=== PATIENT | female | born 1955 | race Caucasian/White ===

== ENCOUNTER 2023-03-31 06:20 | Inpatient (IN) | payer OTHER, MEDICARE, SELFPAY ==
--- NOTE | 2023-02-25 11:28 | CM ---
Patient is scheduled for an elective L THR on 03/31/23. Spoke with patient prior to surgery via telephone. Introduced role of Orthopedic Navigator. Patient reports that she lives with her and daughter in a two story home. There is one step to
enter, two steps into the kitchen and a flight of steps to the second floor. She has a stair glide to the second floor which patient does use. There is a powder room on the entry level accounting clerk. She currently functions independently and uses a cane. She also
has two rolling walkers, two commodes, shower seat, grabbers, long handled shoe horn and sock aide. PCP is Evelia Monte NP.
Discussed orthopedic program and post surgical plans. Reviewed anticipated length of stay and that goal is for her to return home at discharge. Also reviewed outpatient PT. Patient is in agreement with tentative plan and will go directly to
outpatient PT at [facility]. She will have support from her when she goes home.
Patient has completed online education.
Plan: Orthopedic Navigator will remain available to assist with the care of patient and will reassess discharge needs after surgery.
[2023-03-09 07:12] VITALS: BMI 41.3
[2023-03-09 09:04] LABS: Hematocrit 39.4 % (37.0-47.0); Hemoglobin 13.5 g/dL (12.0-16.0); Mean Corp Hgb Conc. 34.3 g/dL (33.0-37.0); Mean Corpuscular Hgb 31.8 pg (27.0-31.0); Mean Corpuscular Volume 92.7 fL (81.0-99.0); Mean Platelet Volume 10.8 fL (7.4-10.4); Platelet Count 249 10^3/uL (130-400); Red Blood Cell Count 4.25 10^6/uL (4.20-5.40); Red Cell Dist. Width 13.2 % (11.5-14.5); White Blood Cell Count 5.9 10^3/uL (4.8-10.8)
[2023-03-09 09:19] LABS: ALT (SGPT) 17 U/L (0-35); AST (SGOT) 27 U/L (14-36); Albumin 4.2 g/dl (3.5-5.0); Alkaline Phosphatase 61 U/L (38-126); Blood Urea Nitrogen 12 mg/dl (7-17); Calcium 9.9 mg/dl (8.4-10.2); Carbon Dioxide 29 mmol/L (22-30); Chloride 102 mmol/L (98-107); Estimated Creatinine Clearance 103 ml/min; Glucose 104 mg/dl (70-99); Potassium 4.3 mmol/L (3.5-5.1); Sodium 137 mmol/L (135-145); Total Bilirubin 0.6 mg/dl (0.2-1.3); Total Protein 6.6 g/dl (6.3-8.2); eGFR > 60.00
[2023-03-09 10:20] LABS: Glycohemoglobin (HgbA1c) 6.1 % (4.0-5.6)
[2023-03-09 15:18] VITALS: BMI 41.3
[2023-03-31] VITALS (22 sets, daily range): BP systolic 74–129; BP diastolic 41–97; PULSE 75–77; O2SAT 96–98; BMI 41.3
[2023-03-31] MEDS: NORMOSOL-R 1000 IV ×2 (08:50→13:17)
[2023-03-31 08:57] LABS: Glucose - Point of Care 128 mg/dl (70-99)
[2023-03-31] MEDS: CELEBREX 200 MG PO (09:06)
[2023-03-31] MEDS: TYLENOL 650 MG PO ×4 (09:06→23:34)
[2023-03-31 11:01] LABS: Glucose - Point of Care 101 mg/dl (70-99)
[2023-03-31 12:47] LABS: Glucose - Point of Care 93 mg/dl (70-99)
[2023-03-31] MEDS: NEURONTIN 200 MG PO ×3 (13:16→21:19)
[2023-03-31] MEDS: ROXICODONE 5 MG PO ×2 (13:17→21:05)
--- NOTE | 2023-03-31 13:29 | W.PN.ORTHO ---
Today's Communication / Plan
-
D/c when clinically stable.
Assessment
.
Distal Motor Intact: Yes
Dressing:
Clean, dry and intact.
Assessment:
L hip OA s/p Mary Jane hall/ Dr Watts 03/31/23
- s/p R TKA, 09/2022, at an outside facility
DVT prophylaxis - ASA, b/l venous foot pumps
HTN - + parameters - monitor BP
Abnormal nuclear stress test - monitor on tele
ROSE, compliant with CPAP (variable setting) - monitor O2
- Resume CPAP HS
- IS
Zea-hlulfky-grsfexavr diabetes, A1c 6.1 - monitor BS
- Resume home meds
- +SSI
- Continue diabetic carb controlled diet
- Cefadroxil to be Rx upon d/c for infection prevention
Hyperlipidemia
Mild pulmonic insufficiency
Venous insufficiency with venous stasis
Colon polyps
Remote migraines
Left breast cancer, 2020, status post left lumpectomy with lymph node excision and radiation; on current Letrozole
Squamous cell carcinoma, status post excision
Eczema
E. Coli UTI, 03/17/2023, treated with Ampicillin
Morbid obesity, BMI 41.3
Pt reported loose stools yesterday (medication induced) - given this, will hold Colace and Senna for now at the request of the patient.
Plan
.
Surgery / Date: Mary Jane hall/ Dr Watts 03/31/23
DVT Prophylaxis: Aspirin
Activity:
Out of bed.
PT/OT
Discharge Plan: Home w/ Outpatient PT
Subjective
.
.:
Patient examined resting in the PACU.
L hip pain 'burning' reported - Gabapentin, Tylenol, and Oxycodone provided.
Denies any new significant complaints.
Vital Signs and Labs
.
Vital Signs and Labs:
Lab Results
01/30/24 07:06
03/09/23 07:06
Temp Pulse Resp BP Pulse Ox
98.1 F 70 16 120/48 98
03/31/23 08:52 03/31/23 08:52 03/31/23 08:52 03/31/23 08:52 03/31/23 08:52
Physical Exam
-
HEENT: No pallor, cyanosis, or jaundice. Throat clear.
NECK: Supple. No JVD.
RESPIRATORY: Lungs clear to auscultation.
CVS: S1, S2 normal. RRR.�
ABDOMEN: Soft, non-tender. No distension. Morbidly obese.
EXTREMITIES: Strength equal, no calf pain with palpation/dorsiflexion. Calves soft.
INSPECTOR OPTICAL INSTRUMENT: AOx3. No focal deficits. dinkey engine mechanic grossly intact
[2023-03-31 13:59] LABS: Glucose - Point of Care 117 mg/dl (70-99)
[2023-03-31] MEDS: NOVOLOG FLEXPEN-MODERATE RESISTANCE SC (14:07)
[2023-03-31] MEDS: GLUCOPHAGE PO (14:59)
[2023-03-31] MEDS: FEMARA PO (16:35)
[2023-03-31] MEDS: VITAMIN D3 (cholecalciferol) 50 MCG PO (16:35)
[2023-03-31] MEDS: TYLENOL PO (16:37)
[2023-03-31] MEDS: GLUCOPHAGE 1000 MG PO (16:40)
--- NOTE | 2023-03-31 17:03 | PTCARENOTE ---
pt admitted to 2S room 2111 from the PACU at 1400. pt oriented to room, environment and plan of care with verbalized understanding. admission database and assessment completed as documented. Telemetry placed -SR w/1st degree AVB block HR 80's. pt
verbalized left hip discomfort @ 3. will monitor.
[2023-03-31 17:35] LABS: Glucose - Point of Care 244 mg/dl (70-99)
[2023-03-31] MEDS: ASPIRIN 325 MG PO (18:23)
[2023-03-31] MEDS: NOVOLOG FLEXPEN-MODERATE RESISTANCE 3 UNITS SC (18:24)
[2023-03-31] MEDS: BACTROBAN 2% OINTMENT 1 APPLIC NASAL (20:46)
[2023-03-31] MEDS: TORADOL 10 MG IV (20:49)
[2023-03-31] MEDS: ANCEF 5 IV (20:50)
[2023-03-31 21:05] LABS: Glucose - Point of Care 182 mg/dl (70-99)
[2023-03-31] MEDS: ZESTRIL 5 MG PO (21:18)
[2023-03-31] MEDS: FEOSOL 325 MG PO (21:19)
[2023-03-31] MEDS: PEPCID 20 MG PO (21:19)
[2023-03-31] MEDS: LIPITOR 40 MG PO (21:20)
[2023-04-01 00:01] VITALS: BP 114/48
[2023-04-01] MEDS: TYLENOL 650 MG PO ×2 (03:07→08:23)
[2023-04-01] MEDS: ANCEF 5 IV (03:08)
[2023-04-01] MEDS: ROXICODONE 5 MG PO ×2 (03:14→08:34)
[2023-04-01 04:00] VITALS: BP 99/47
--- NOTE | 2023-04-01 04:40 | PTCARENOTE ---
patient AAOX3, OOB to BR with walker. INT Rt wrist flushed and clamped.
[2023-04-01 07:12] VITALS: BP 91/56
[2023-04-01 07:41] LABS: Glucose - Point of Care 127 mg/dl (70-99)
[2023-04-01] MEDS: NOVOLOG FLEXPEN-MODERATE RESISTANCE SC (08:22)
[2023-04-01] MEDS: ASPIRIN 325 MG PO (08:23)
[2023-04-01] MEDS: BACTROBAN 2% OINTMENT 1 APPLIC NASAL (08:23)
[2023-04-01] MEDS: GLUCOPHAGE 1000 MG PO (08:23)
[2023-04-01] MEDS: MOBIC 15 MG PO (08:23)
[2023-04-01] MEDS: NEURONTIN 200 MG PO (08:23)
[2023-04-01] MEDS: FEMARA 2.5 MG PO (08:23)
[2023-04-01] MEDS: VITAMIN D3 (cholecalciferol) 50 MCG PO (08:24)
[2023-04-01 08:30] VITALS: BP 109/57
--- NOTE | 2023-04-01 08:48 | CM ---
Addendum entered by Ina Giron 04/01/23 11:40:
Patient did very well in therapy. She and her have no concerns about going home.
Original Note:
Reviewed chart and held rounds with PT, OT and nursing. Patient admitted as planned for elective L THR. Met with patient at bedside. Confirmed information previously obtained for assessment. Also discussed discharge plans. The plan is for patient to
return home at discharge. She will have support from her when she goes home. Patient will go directly to outpatient PT and will go to [facility]. She has an appointment scheduled for Wednesday, 04/02.
Patient has all needed DME.
She will use [facility] pharmacy for discharge prescriptions.
Discharge plans were reviewed with patient's on 03/31. will be present for therapy today.
--- NOTE | 2023-04-01 09:15 | W.PN.ORTHO ---
Today's Communication / Plan
-
Await PT and OT recs.
D/c later today if remaining clinically stable.
Assessment
.
Distal Motor Intact: Yes
Dressing:
Clean, dry and intact.
Assessment:
L hip OA s/p Mary Jane JESUS w/ Dr Watts 03/31/23
- s/p R TKA, 09/2022, at an outside facility
DVT prophylaxis - ASA, b/l venous foot pumps
HTN - + parameters - BPs stable
Abnormal nuclear stress test - maintaining NSR/asymptomatic sinus eunice w/ 1st deg AV block on tele
ROSE, compliant with CPAP (variable setting) - O2 stable on RA
- Resumed CPAP HS
- IS
Dem-ofwpybu-xopeyeijk diabetes, A1c 6.1 - BS readings initially elevated post-op 2* surgical stress/IV steroids in OR/holding of AM Metformin
- BS readings improving, however, w/ resumption of home meds, SSI as needed
- Continue diabetic carb controlled diet
- Cefadroxil to be Rx upon d/c for infection prevention
Hyperlipidemia
Mild pulmonic insufficiency
Venous insufficiency with venous stasis
Colon polyps
Remote migraines
Left breast cancer, 2020, status post left lumpectomy with lymph node excision and radiation; on current Letrozole
Squamous cell carcinoma, status post excision
Eczema
E. Coli UTI, 03/17/2023, treated with Ampicillin
Morbid obesity, BMI 41.3
Pt reported loose stools 03/30 (medication induced) - given this, will hold Colace and Senna for now at the request of the patient.
Plan
.
Surgery / Date: Mary Jane hall/ Dr Watts 03/31/23
DVT Prophylaxis: Aspirin
Activity:
Out of bed.
PT/OT
Discharge Plan: Home w/ Outpatient PT
Subjective
.
.:
Patient resting comfortably in bed this AM.
L hip pain overall well controlled w/ current pain meds.
Denies any new significant complaints.
Eager for potential d/c today.
Vital Signs and Labs
.
Vital Signs and Labs:
Lab Results
03/09/23 07:06
03/09/23 07:06
Temp Pulse Resp BP Pulse Ox
97.5 F 71 18 109/57 96
04/01/23 07:12 04/01/23 07:12 04/01/23 07:12 04/01/23 08:30 04/01/23 07:12
Non-invasive Hgb result: 11.6
Physical Exam
-
HEENT: No pallor, cyanosis, or jaundice. Throat clear.
NECK: Supple. No JVD.
RESPIRATORY: Lungs clear to auscultation.
CVS: S1, S2 normal. RRR.�
ABDOMEN: Soft, non-tender. No distension. Morbidly obese.
EXTREMITIES: Strength equal, no calf pain with palpation/dorsiflexion. Calves soft.
STORE SALES CONSULTANT: AOx3. No focal deficits. professor of chemistry grossly intact
[2023-04-01 10:05] VITALS: BP 116/51; PULSE 63; O2SAT 97
--- NOTE | 2023-04-01 11:07 | W.DS.TRANS ---
DC Summary - Furnace Stock Inspector
-
Discharge Instructions:
Discharge Diagnosis/Procedures L hip OA s/p L EDIN w/ Dr Watts 03/31/23
Diet Diabetic, Carb Controlled
Activity As tolerated,With Walker
Driving Restrictions Not until seen by your Dr
Bathing Restrictions OK to Shower
Other Services PT
Wound Care Dressing to be removed 1 week post-surgery
Instructions:
Stand-Alone Forms: Total Hip/Knee Replacement D/C
Changes to Home Medications: Yes
Discharge Medications:
DC Medications w/original date entered in [employer]
ascorbic acid (vitamin C) 1,000 mg tablet (Vitamin C) 1,000 mg PO DAILY 03/04/23
atorvastatin 40 mg tablet 40 mg PO HS 03/04/23
coQ10 (ubiquinol) 100 mg capsule 100 mg PO HS 03/04/23
glucosamine-chondroitin 250 mg-200 mg tablet (Osteo Bi-Flex) 2 tab PO HS 03/04/23
krill oil-hyaluronic acid-astaxanthin 353 mg capsule 1 cap PO HS 03/04/23
letrozole 2.5 mg tablet 2.5 mg PO DAILY 03/04/23
metformin 1,000 mg tablet 1,000 mg PO BID 03/04/23
multivitamin 1 tab PO HS 03/04/23
tirzepatide 10 mg/0.5 mL subcutaneous pen injector (Mounjaro) 10 mg SC WE 03/04/23
turmeric 500 mg-black pepper extract 3 mg capsule 3 cap PO HS 03/04/23
vitamin B complex 1 cap PO HS 03/04/23
cholecalciferol (vitamin D3) 50 mcg (2,000 unit) tablet 50 mcg PO DAILY 03/09/23
ferrous sulfate 325 mg (65 mg iron) tablet 325 mg PO HS 03/09/23
mupirocin 2 % topical ointment 1 applic intranasal BID #1 tube 03/09/23
Saccharomyces boulardii 250 mg capsule (Florastor) 250 mg PO BID #14 caps 04/01/23
acetaminophen 500 mg tablet 1,000 mg PO Q6H #60 tabs 04/01/23
aspirin 325 mg tablet 325 mg PO DAILY #30 tabs 04/01/23
cefadroxil 500 mg capsule 500 mg PO BID infection prevention #14 caps 04/01/23
docusate sodium 100 mg capsule (Colace) 100 mg PO BID #30 caps 04/01/23
famotidine 20 mg tablet 20 mg PO HS #30 tabs 04/01/23
gabapentin 100 mg capsule 200 mg PO TID #30 caps 04/01/23
lisinopril 5 mg tablet 5 mg PO HS #0 tabs 04/01/23
meloxicam 15 mg tablet 15 mg PO DAILY #30 tabs 04/01/23
ondansetron HCl 4 mg tablet 4 mg PO Q6H PRN nausea and vomiting #30 tabs 04/01/23
oxycodone 5 mg tablet 5 - 10 mg PO Q6H PRN moderate-severe pain #30 tabs 04/01/23
sennosides 8.6 mg tablet (senna) 17.2 mg PO BID #30 tabs 04/01/23
Home Medication Changes
Saccharomyces boulardii 250 mg capsule (Florastor) 250 mg PO BID #14 caps 04/01/23
acetaminophen 500 mg tablet 1,000 mg PO Q6H #60 tabs 04/01/23
aspirin 325 mg tablet 325 mg PO DAILY #30 tabs 04/01/23
cefadroxil 500 mg capsule 500 mg PO BID infection prevention #14 caps 04/01/23
docusate sodium 100 mg capsule (Colace) 100 mg PO BID #30 caps 04/01/23
famotidine 20 mg tablet 20 mg PO HS #30 tabs 04/01/23
gabapentin 100 mg capsule 200 mg PO TID #30 caps 04/01/23
meloxicam 15 mg tablet 15 mg PO DAILY #30 tabs 04/01/23
ondansetron HCl 4 mg tablet 4 mg PO Q6H PRN nausea and vomiting #30 tabs 04/01/23
oxycodone 5 mg tablet 5 - 10 mg PO Q6H PRN moderate-severe pain #30 tabs 04/01/23
sennosides 8.6 mg tablet (senna) 17.2 mg PO BID #30 tabs 04/01/23
Pending Results: No
[2023-04-01 11:20] VITALS: BP 115/51; PULSE 64
== END 2023-04-01 12:16 | disposition home or self-care (01) | DRG 470 ==
LOC: 2 SOUTH 06:20
PROVIDERS: ADMITTING PHYSICIAN Orthopaedic Surgery; FAMILY PHYSICIAN Nurse Practitioner Family; REFERRING PHYSICIAN Physician Assistant
PROC: 0SR903A Replacement of Right Hip Joint with Ceramic Synthetic Substitute, Uncemented, Open Approach (ICD-10-PCS; 2023-03-31)
DX: M16.12 Unilateral primary osteoarthritis, left hip (principal); Z68.41 Body mass index [BMI] 40.0-44.9, adult; I10 Essential (primary) hypertension; Z79.84 Long term (current) use of oral hypoglycemic drugs; E11.9 Type 2 diabetes mellitus without complications; E78.5 Hyperlipidemia, unspecified; E66.01 Morbid (severe) obesity due to excess calories
CPT/HCPCS: 36415; 73502; 80053; 82962; 83036; 85027; 87070; 97110; 97116; 97162; 97166; 97530; 97535; C1776

== ENCOUNTER 2023-12-29 06:06 | Day surgery (SDC) | payer OTHER, SELFPAY ==
[2023-11-29 08:14] VITALS: BMI 36.0
[2023-11-29 08:39] LABS: Hematocrit 39.1 % (37.0-47.0); Hemoglobin 12.9 g/dL (12.0-16.0); Mean Corpuscular Hgb 30.9 pg (27.0-31.0); Mean Corpuscular Volume 93.8 fL (81.0-99.0); Platelet Count 250 10^3/uL (130-400); Red Blood Cell Count 4.17 10^6/uL (4.20-5.40); Red Cell Dist. Width 12.8 % (11.5-14.5); White Blood Cell Count 5.4 10^3/uL (4.8-10.8)
[2023-11-29 09:12] LABS: ALT (SGPT) 22 U/L (0-35); AST (SGOT) 28 U/L (14-36); Albumin 4.3 g/dl (3.5-5.0); Alkaline Phosphatase 56 U/L (38-126); Blood Urea Nitrogen 21 mg/dl (7-17); Calcium 9.9 mg/dl (8.4-10.2); Carbon Dioxide 28 mmol/L (22-30); Chloride 102 mmol/L (98-107); Estimated Creatinine Clearance 94 ml/min; Glucose 90 mg/dl (70-99); Potassium 4.3 mmol/L (3.5-5.1); Sodium 143 mmol/L (135-145); Total Bilirubin 0.4 mg/dl (0.2-1.3); Total Protein 6.7 g/dl (6.3-8.2); eGFR > 60.00
[2023-11-29 10:06] LABS: Glycohemoglobin (HgbA1c) 5.5 % (4.0-5.6)
--- NOTE | 2023-12-21 09:31 | VNURNOTE ---
Patient is scheduled for an elective L TKA on 12/29/23- she is a same day patient with Dr Watts. Spoke with patient prior to surgery. Introduced role of [facility] Liaison. Patient reports that she lives with spouse in a MULTI story home.
There are 2 steps to enter and a flight of steps to the second floor.
She has a raised toilet seat, cane and rolling walker and stairglide.
She had VN services with [facility] after prior TKR but was not same day surgery.
Discussed [facility] joint protocol and post surgical plans.
Patient declining [facility] as it would be a copay. She would like to start outpatient PT day after surgery[facility] She will schedule for 12/29.
Patient states that her spouse will be home with her. Advised to bring RW with her day of surgery.
[facility] notified of post op plans. Ortho pre-op appt on 12/23.
Plan: outpt PT [facility] on 12/29
[2023-12-24 09:06] VITALS: BMI 36.0
--- NOTE | 2023-12-28 12:58 | VNURNOTE ---
Received info from Kes[facility] that patient now requesting [facility] home VN /PT. Scheduled for Same Day surgery on 12/28. Referral sent to [facility] . Rec'ed confirmation from Vicenta Mcallister and [facility] that they will acept patient.
Their office will contact pt. Patient called and updated by this author. She expressed appreciation and mentioned outpt PT scheduled for Jan 10.
--- NOTE | 2023-12-28 16:11 | VNURNOTE ---
Rec'ed call from Magnolai at [facility]. She stated they can see patient for next day start of care visit on 12/29. Kesha Henderson aware via tiger text.
[2023-12-29] VITALS (24 sets, daily range): BP systolic 100–160; BP diastolic 30–92; PULSE 91; O2SAT 96; BMI 36.0
[2023-12-29] MEDS: CELEBREX 200 MG PO (07:01)
[2023-12-29] MEDS: TYLENOL 650 MG PO ×2 (07:01→12:36)
[2023-12-29 07:15] LABS: Glucose - Point of Care 100 mg/dl (70-99)
[2023-12-29 09:14] LABS: Glucose - Point of Care 100 mg/dl (70-99)
[2023-12-29] MEDS: NEO-SYNEPHRINE 250 IV (09:32)
[2023-12-29] MEDS: DILAUDID 0.25 MG IV (10:35)
[2023-12-29] MEDS: ANCEF 5 IV (12:03)
[2023-12-29] MEDS: TORADOL 15 MG IV (12:35)
[2023-12-29] MEDS: NEURONTIN 200 MG PO (12:36)
== END 2023-12-29 15:03 | disposition home health service (06) ==
LOC: SDS 06:06
PROVIDERS: ATTENDING PHYSICIAN Orthopaedic Surgery; FAMILY PHYSICIAN Nurse Practitioner Family; REFERRING PHYSICIAN Internal Medicine Cardiovascular Disease
DX: M17.12 Unilateral primary osteoarthritis, left knee (principal)
CPT/HCPCS: 27447; C1713; C1776; 36415; 73560; 80053; 82962; 83036; 85027; 87070; 97116; 97162